=== PATIENT | female | born 1970 | race Caucasian/White ===

== ENCOUNTER → 2025-04-08 | Outpatient (CLI) | payer OTHER, SELFPAY ==
[2025-04-08 14:10] LABS: Potassium 3.8 mMol/L (3.4-5.1)
== END | disposition home or self-care (01) ==
LOC: COPL 13:21
PROVIDERS: PCP Family Medicine; Referring Provider Registered Nurse; Visit Provider Registered Nurse
DX: E87.5 Hyperkalemia (principal)
CPT/HCPCS: 36415; 84132

== ENCOUNTER → 2025-04-08 | Outpatient (CLI) | payer OTHER, SELFPAY ==
--- NOTE | 2025-04-08 | XR_ITS ---
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
[2025-04-08 08:09] LABS: Collection Type, Urine Clean Catch
[2025-04-08 08:33] LABS: Basophils # (Auto) 0.1 Thou/mm3 (0.0-0.2); Basophils % (Auto) 2 % (0-2.5); Eosinophils # (Auto) 0.2 Thou/mm3 (0.0-0.5); Eosinophils % (Auto) 5 % (0-10); Hematocrit 41.4 % (36.0-46.0); Hemoglobin 13.5 g/dL (12.0-16.0); Immature Granulocytes Auto 0.01 Thou/mm3 (0.00-0.00); Lymphocytes # (Auto) 1.4 Thou/mm3 (1.0-4.8); Lymphocytes % (Auto) 29 % (10-50); Mean Corpuscular HGB Conc 32.6 g/dl (31.0-37.0); Mean Corpuscular Hemoglobin 29.6 pg (25.0-35.0); Mean Corpuscular Volume 91 fL (80-100); Monocytes # (Auto) 0.3 Thou/mm3 (0.0-0.8); Monocytes % (Auto) 7 % (0-12); Neutrophils # (Auto) 2.8 Thou/mm3 (1.8-7.7); Neutrophils % (Auto) 58 % (37-80); Nucleated Red Blood Cell # 0.00 Thou/mm3 (0.00-0.00); Nucleated Red Blood Cell % 0 /100 WBC (0); Platelet Count 225 Thou/mm3 (140-440); RDW Standard Deviation 41.1 fL (36.4-46.3); Red Blood Count 4.56 Miln/mm3 (4.00-5.20); White Blood Count 4.8 Thou/mm3 (3.6-11.0)
[2025-04-08 08:42] LABS: Bilirubin,Urine Negative (Negative); Blood,Urine Trace (Negative); Clarity,Urine Clear (Clear/Hazy); Color,Urine Lt-Yellow (Lt Yel-Yel); Culture Indicated,Urine Not Indicated; Glucose, Urine Negative (Negative); Ketones,Urine Negative (Negative); Leukocyte Esterase,Urine Negative (Negative); Nitrite,Urine Negative (Negative); PH,Urine 5.5 (5.0-7.0); Protein,Urine Negative (Neg - Trace); RBC,Urine 7 /hpf (0-3); Specific Gravity,Urine 1.027 (1.001-1.035); Squamous Epithelial Cell,Urine < 1 /hpf (0-5); Urobilinogen,Urine Negative mg/dL (0.0-1.0); WBC,Urine 1 /hpf (0-5)
[2025-04-08 08:47] LABS: Glucose Estimated Average 117 mg/dL (80-131); Hemoglobin A1C 5.7 % Hgb (4.8-6.0)
[2025-04-08 09:01] LABS: Alanine Aminotransferase 14 U/L (10-49); Albumin, Serum 4.9 gm/dL (3.5-5.0); Albumin/Globulin Ratio 2.7 (1.2-2.2); Alkaline Phosphatase 79 U/L (46-116); Anion Gap 7 (7-16); Aspartate Amino Transferase 20 U/L (0-34); BUN/Creatinine Ratio 11 Ratio (12-20); Bilirubin,Total 0.6 mg/dL (0.3-1.2); Blood Urea Nitrogen 12 mg/dL (9-23); Calcium 10.6 mg/dL (8.3-10.6); Calcium (Corrected) 10.6 mg/dL (8.5-10.1); Carbon Dioxide 30.2 mMol/L (20.0-31.0); Cardiac Risk Estimate 3.1 RATIO (3.7-5.6); Chloride 107 mMol/L (98-107); Cholesterol 220 mg/dL (132-200); Creatinine (Component) 1.1 mg/dL (0.6-1.3); Free T4 (Free Thyroxine) 1.35 ng/dL (0.89-1.76); Globulin 1.8 gm/dL (2.3-3.5); Glucose 97 mg/dL (74-106); HDL Cholesterol 71 mg/dL (40-60); LDL Cholesterol,Calculated 130 mg/dL (0-130); Osmolality,Calculated 286 (275-295); Potassium 5.8 mMol/L (3.4-5.1); Sodium 144 mMol/L (136-145); Thyroid Stimulating Hormone 2.50 uIU/mL (0.55-4.78); Total Protein 6.7 gm/dL (5.7-8.2); Triglycerides 93 mg/dL (30-150); eGFR 60 See Note
[2025-04-08 09:06] LABS: Vitamin D 25 Hydroxy Total 30.8 ng/mL (7.3-40.2)
[2025-04-08 15:05] LABS: RA Screen Negative (Negative)
[2025-04-14 06:39] LABS: ANA Screen, IFA NEGATIVE (NEGATIVE)
== END | disposition home or self-care (01) ==
LOC: CDIM 06:48
PROVIDERS: PCP Family Medicine; Referring Provider Registered Nurse; Visit Provider Registered Nurse
DX: M19.042 Primary osteoarthritis, left hand (principal); Z00.00 Encounter for general adult medical examination without abnormal findings; E03.9 Hypothyroidism, unspecified
CPT/HCPCS: 36415; 73130; 80053; 80061; 81001; 82306; 83036; 84439; 84443; 85025; 86038; 86430